=== PATIENT | female | born 1985 | race Caucasian/White ===

== ENCOUNTER → 2017-09-27 12:03 | Outpatient (CLI) | payer OTHER, SELFPAY ==
[2017-09-27 13:58] LABS: Basophils % 0.2 % (0.1-2.0); Eosinophils # 0.1 K/mm3 (0.0-0.4); Eosinophils % 1.9 % (0.1-12.0); Hematocrit 42.7 % (37.0-47.0); Hemoglobin 13.3 g/dL (12.2-16.2); Lymphocytes # 0.8 K/mm3 (0.7-4.5); Lymphocytes % 11.6 K/mm3 (10-50); Mean Corpuscular HGB Conc 31.3 g/dL (31.8-35.4); Mean Corpuscular Hemoglobin 27.4 pg (27.0-31.2); Mean Corpuscular Volume 87.7 fl (81-99); Monocytes # 0.3 K/mm3 (0.1-1.0); Monocytes % 4.3 % (1.7-9.3); Neutrophils # 5.5 K/mm3 (1.8-7.8); Platelet Count 339 K/mm3 (142-424); Red Blood Count 4.87 M/mm3 (4.20-5.40); Red Cell Distribution Width 12.3 % (11.5-17.5); White Blood Count 6.7 K/mm3 (4.8-10.8)
[2017-09-27 15:02] LABS: Alanine Aminotransferase 22 U/L (12-78); Albumin Level 3.8 gm/dL (3.4-5.0); Albumin/Globulin Ratio 1.2 (1.1-1.8); Alkaline Phosphatase 102 U/L (46-116); Anion Gap 15.3 mEq/L (5-15); Aspartate Amino Transferase 16 U/L (15-37); Bilirubin,Total 0.3 mg/dL (0.2-1.0); Blood Urea Nitrogen 9 mg/dL (7-18); Calcium 9.4 mg/dL (8.5-10.1); Carbon Dioxide 26 mmol/L (21.0-32.0); Chloride 103 mmol/L (98-107); Creatinine,Serum 0.56 mg/dL (0.55-1.02); Estimated Glomerular Filt Rate 125 ml/min (>60); GFR (African American) 151 ML/MIN (>60); Globulin 3.1 gm/dl (1.3-3.2); Glucose 81 mg/dL (74-106); Potassium 4.3 mmoL/L (3.5-5.1); Sodium 140 mmol/L (136-145); Thyroid Stimulating Hormone 2.37 uIU/ml (0.358-3.740); Total Protein,Serum 6.9 gm/dL (6.4-8.2)
[2017-09-28 20:26] LABS: Vitamin B12 321 pg/mL (232-1245); Vitamin D 25 Hydroxy 17.5 ng/mL (30.0-100.0)
== END ==
PROVIDERS: Visit Provider Nurse Practitioner Family
DX: R53.83 Other fatigue (principal)
CPT/HCPCS: 36415; 80053; 82607; 82652; 84443; 85025

== ENCOUNTER → 2019-02-18 11:17 | Outpatient (CLI) | payer OTHER, SELFPAY ==
--- NOTE | 2019-02-18 | XR_ITS ---
PROCEDURE: XR CHEST 2V CLINICAL HISTORY: CHEST PAIN COMPARISON: No exams were available for comparison FINDINGS: The cardiomediastinal silhouette and pulmonary vascularity are within normal limits. The lungs are clear without infiltrates, suspicious nodules, or pleural effusions. No acute bony abnormalities. IMPRESSION: No acute findings. Dictated by: Ari Cramer MD 02/19/2019 11:27 Electronically signed by Ari Cramer MD in [place] 02/19/2019 11:27
[2019-02-18 11:39] LABS: Basophils # 0.1 K/mm3 (0-0.2); Basophils % 0.7 % (0.1-2.0); Eosinophils # 0.3 K/mm3 (0.0-0.4); Eosinophils % 3.3 % (0.1-12.0); Hematocrit 40.4 % (37.0-47.0); Hemoglobin 13.4 g/dL (12.2-16.2); Lymphocytes # 2.2 K/mm3 (0.7-4.5); Lymphocytes % 28.3 % (10-50); Mean Corpuscular HGB Conc 33.2 g/dL (31.8-35.4); Mean Corpuscular Hemoglobin 29.5 pg (27.0-31.2); Mean Corpuscular Volume 89.1 fl (81-99); Mean Platelet Volume 7.9 fl (7.4-10.4); Monocytes # 0.4 K/mm3 (0.1-1.0); Monocytes % 5.1 % (1.7-9.3); Neutrophils # 4.9 K/mm3 (1.8-7.8); Neutrophils % 62.7 % (37.0-80.0); Platelet Count 381 K/mm3 (142-424); Red Blood Count 4.54 M/mm3 (4.20-5.40); Red Cell Distribution Width 11.9 % (11.5-17.5); White Blood Count 7.8 K/mm3 (4.8-10.8)
[2019-02-18 11:53] LABS: Troponin I < 0.02 ng/ml (0.00-0.06)
[2019-02-18 11:59] LABS: Anion Gap 9.2 mEq/L (5-15); Blood Urea Nitrogen 10 mg/dL (7-18); Calcium 9.4 mg/dL (8.5-10.1); Carbon Dioxide 29 mmol/L (21.0-32.0); Chloride 104 mmol/L (98-107); Creatinine,Serum 0.82 mg/dL (0.55-1.02); Estimated Glomerular Filt Rate 79 ml/min (>60); GFR (African American) 96 ML/MIN (>60); Glucose 91 mg/dL (74-106); Potassium 4.2 mmoL/L (3.5-5.1); Sodium 138 mmol/L (136-145); T4 (Thyroxine) 8.9 ug/dl (4.7-13.3); Thyroid Stimulating Hormone 3.29 uIU/ml (0.358-3.740); Triiodothryronine (T3) Uptake 34 % (31-39)
== END ==
PROVIDERS: Visit Provider Urology
DX: R07.9 Chest pain, unspecified (principal)
CPT/HCPCS: 36415; 71046; 80048; 84436; 84443; 84479; 84484; 85025

== ENCOUNTER → 2019-05-15 08:00 | Outpatient (CLI) | payer OTHER, SELFPAY ==
[2019-05-15 09:28] LABS: Alanine Aminotransferase 19 U/L (12-78); Albumin Level 4.1 gm/dL (3.4-5.0); Albumin/Globulin Ratio 1.6 (1.1-1.8); Alkaline Phosphatase 64 U/L (46-116); Anion Gap 12.2 mEq/L (5-15); Aspartate Amino Transferase 14 U/L (15-37); Bilirubin,Total 0.3 mg/dL (0.2-1.0); Blood Urea Nitrogen 11 mg/dL (7-18); Calcium 9.6 mg/dL (8.5-10.1); Carbon Dioxide 26 mmol/L (21.0-32.0); Chloride 105 mmol/L (98-107); Chol/HDL Ratio 3.2 (1-3.5); Cholesterol 177 mg/dL (140-200); Creatinine,Serum 0.71 mg/dL (0.55-1.02); Estimated Glomerular Filt Rate 94 ml/min (>60); GFR (African American) 113 ML/MIN (>60); Globulin 2.5 gm/dl (1.3-3.2); Glucose 90 mg/dL (74-106); HDL Cholesterol 56 mg/dL (29-89); LDL Cholesterol 102 mg/dL (0-130); Potassium 4.2 mmoL/L (3.5-5.1); Sodium 139 mmol/L (136-145); Total Protein,Serum 6.6 gm/dL (6.4-8.2); Triglycerides 95 mg/dL (30-200); VLDL Cholesterol 19 mg/dL (0-40)
== END ==
PROVIDERS: Visit Provider Nurse Practitioner Family
DX: E78.5 Hyperlipidemia, unspecified (principal)
CPT/HCPCS: 36415; 80053; 80061

== ENCOUNTER → 2019-11-24 16:23 | Outpatient (CLI) | payer OTHER, SELFPAY | PROVIDERS: PCP Internal Medicine Adolescent Medicine; Visit Provider Internal Medicine Adolescent Medicine | DX: U07.1 COVID-19 (principal) | CPT/HCPCS: U0003 ==

== ENCOUNTER → 2019-12-03 11:56 | Outpatient (CLI) | payer OTHER, SELFPAY ==
[2019-12-05 09:01] LABS: Covid-19 Nasal PCR Sendout Lex Indeterminate
== END ==
PROVIDERS: PCP Internal Medicine Adolescent Medicine; Visit Provider Internal Medicine Adolescent Medicine
DX: Z03.818 Encounter for observation for suspected exposure to other biological agents ruled out (principal)
CPT/HCPCS: U0004

== ENCOUNTER → 2019-12-07 07:19 | Outpatient (CLI) | payer OTHER, SELFPAY ==
[2019-12-07 10:03] LABS: Coronavirus 19 IgG Antibody Positive (Negative); Coronavirus 19 IgM Antibody Positive (Negative)
== END ==
PROVIDERS: PCP Internal Medicine Adolescent Medicine; Visit Provider Internal Medicine Adolescent Medicine
DX: Z20.828 Contact with and (suspected) exposure to other viral communicable diseases (principal); U07.1 COVID-19
CPT/HCPCS: 36415; 86328

== ENCOUNTER → 2019-12-25 16:11 | Outpatient (CLI) | payer OTHER, SELFPAY ==
--- NOTE | 2019-12-25 16:19 | US_ITS ---
PROCEDURE: US BREAST LT COMPLETE CLINICAL INDICATION: BREAST PAIN, LEFT COMPARISON: No exams were available for comparison FINDINGS: Survey ultrasound images of the entire breast show somewhat diffuse heterogenic echogenicity throughout. There is no suspicious cystic or solid mass noted. There are couple normal appearing nodes in the axilla. IMPRESSION: Unremarkable ultrasound left breast Dictated by: Dr. Isauro Miranda MD 12/27/2019 08:48 Dr. Isauro Miranda MD in [place] 12/27/2019 08:48
== END ==
PROVIDERS: PCP Internal Medicine Adolescent Medicine; Visit Provider Internal Medicine Adolescent Medicine
DX: N64.4 Mastodynia (principal)
CPT/HCPCS: 76641

== ENCOUNTER → 2021-08-22 08:26 | Outpatient (CLI) | payer OTHER, SELFPAY ==
--- NOTE | 2021-08-22 08:26 | US_ITS ---
FINAL REPORT CLINICAL HISTORY: RUQ pain FINDINGS: Sonographic images of the right upper quadrant were obtained. The pancreas is partially obscured.The liver has an unremarkable appearance. There is an echogenic nonshadowing focus in the gallbladder which may represent a polyp versus tumefactive sludge. There is no definite gallstone. There is no evidence of biliary ductal dilatation.The common duct measures 3 mm. Limited images of the right kidney are unremarkable. IMPRESSION: Polyp versus tumefactive sludge within the gallbladder. No definite gallstone is identified. Reviewed, Interpreted and Dictated by Ever Davenport III, MD Transcribed by Blanca Vega Authenticated by Ever Davenport III, MD on 08/22/2021 09:49:29 AM [facility]
== END ==
PROVIDERS: PCP Internal Medicine Adolescent Medicine; Visit Provider Surgery
DX: R10.11 Right upper quadrant pain (principal)
CPT/HCPCS: 76705

== ENCOUNTER → 2021-12-19 08:59 | Outpatient (CLI) | payer OTHER, SELFPAY ==
[2021-12-19 10:08] LABS: Urine Pregnancy, HCG Qual. Negative (Negative)
[2021-12-19 10:18] LABS: Basophils % 0.5 % (0.1-2.0); Eosinophils # 0.2 K/mm3 (0.0-0.4); Eosinophils % 3.1 % (0.1-12.0); Hemoglobin 12.6 g/dL (12.2-16.2); Lymphocytes # 1.4 K/mm3 (0.7-4.5); Lymphocytes % 21.9 % (10-50); Mean Corpuscular HGB Conc 30.7 g/dL (31.8-35.4); Mean Corpuscular Volume 91.3 fl (81-99); Mean Platelet Volume 7.9 fl (7.4-10.4); Monocytes # 0.3 K/mm3 (0.1-1.0); Monocytes % 5.1 % (1.7-9.3); Neutrophils # 4.4 K/mm3 (1.8-7.8); Neutrophils % 69.4 % (37.0-80.0); Platelet Count 388 K/mm3 (142-424); Red Blood Count 4.49 M/mm3 (4.20-5.40); Red Cell Distribution Width 12.2 % (11.5-17.5); White Blood Count 6.4 K/mm3 (4.8-10.8)
[2021-12-19 11:04] LABS: Alanine Aminotransferase 17 U/L (12-78); Albumin Level 4.2 g/dl (3.5-5.0); Albumin/Globulin Ratio 1.7 (1.1-1.8); Alkaline Phosphatase 86 U/L (38-126); Anion Gap 10.2 mEq/L (5-15); Aspartate Amino Transferase 24 U/L (14-36); Bilirubin,Total < 0.1 mg/dl (0.2-1.3); Blood Urea Nitrogen 12 mg/dl (7-17); Calcium 9.8 mg/dl (8.4-10.2); Carbon Dioxide 27 mmol/L (22.0-30.0); Chloride 103 mmol/L (98-107); Estimated Glomerular Filt Rate 94 ml/min (>60); GFR (African American) 113 ML/MIN (>60); Globulin 2.5 g/dL (1.3-3.2); Glucose 101 mg/dl (74-100); Potassium 4.2 mmoL/L (3.5-5.1); Sodium 136 mmol/L (136-145); Total Protein,Serum 6.7 g/dl (6.3-8.2)
== END ==
PROVIDERS: PCP Internal Medicine Adolescent Medicine; Visit Provider Surgery
DX: Z01.812 Encounter for preprocedural laboratory examination (principal); R10.11 Right upper quadrant pain
CPT/HCPCS: 36415; 80053; 81025; 85025

== ENCOUNTER → 2021-12-20 11:37 | Outpatient (CLI) | payer OTHER, SELFPAY | PROVIDERS: PCP Internal Medicine Adolescent Medicine; Visit Provider Surgery | DX: Z01.812 Encounter for preprocedural laboratory examination (principal); Z20.822 Contact with and (suspected) exposure to COVID-19 | CPT/HCPCS: C9803; U0003; U0005 ==

== ENCOUNTER 2021-12-21 06:09 | Day surgery (SDC) | payer OTHER, SELFPAY ==
[2021-12-21] VITALS (14 sets, daily range): BP systolic 110–135; BP diastolic 69–94; PULSE 73–104; RESP 10–20; TEMP 36.1–43; O2SAT 96–100; BMI 28.5
--- NOTE | 2021-12-21 06:21 | EXP.GEN.HP ---
HPI HPI HPI: Patient is a 36-year-old female who has had symptoms consistent with biliary colic characterized as sporadic right upper quadrant pain. This has been somewhat progressive and is becoming nearly constant. She underwent gallbladder ultrasound which revealed gallbladder polyp versus tumefactive sludge. PFSH PFSH Medical History (Updated 12/21/21 @ 06:32 by Sydnee Adler RN) Allergies Urinary tract infection Surgical History (Updated 12/21/21 @ 06:31 by Sydnee Adler RN) History of tonsillectomy and adenoidectomy Hx of section Family History (Updated 12/21/21 @ 06:56 by Sydnee Adler RN) Lung cancer Grandfather Hx of heart bypass surgery Social History (Updated 12/21/21 @ 06:36 by Sydnee Adler RN) Smoking Status: Former smoker years smoked: 6 smoking status stop date: 12/13/2006 how long ago did patient quit smokin YEARS AGO second hand exposure: No alcohol intake: current substance use type: denies use current occupational status: employed Travel in the last 8 weeks: None housing: house Review of Systems Review of Systems Review of systems:: pertinent systems reviewed and negative unless documented below Meds Home Medications and Allergies Home Medications Medication Instructions Recorded Confirmed Type loratadine 5 mg-pseudoephedrine ER 1 tab PO DAILY allergies 08/01/21 12/21/21 History 120 mg tablet,extended release,12hr (Alavert D-12 Allergy-Sinus) New Prescriptions to Start Prescriptions: Allergies Allergy/AdvReac Type Severity Reaction Status Date / Time No Known Allergies Allergy Verified 12/21/21 06:27 Exam *Routine HEENT Exam Head: Present normocephalic Eye: Present PERRL ENT: Present mucous membranes moist *Routine Respiratory Exam Respiratory: Present normal respiratory effort *Routine Cardiovascular Exam Cardiovascular: Present RRR *Routine Abdominal Exam Abdominal: Present soft *Routine Rectal Exam Rectal:: deferred *Routine Genitalia Exam Genitalia:: deferred Assessment and Plan *Assessment and plan (1) Gallbladder disease: Status: Acute Category: Medical Code(s): K82.9 - Disease of gallbladder, unspecified Plan Options were discussed. She wished to pursue cholecystectomy. Plan will be for laparoscopic possibly open cholecystectomy.
--- NOTE | 2021-12-21 07:03 | P.PN_ITS ---
PFSH PFSH Medical History Allergies Urinary tract infection Surgical History History of tonsillectomy and adenoidectomy Hx of section Family History Grandfather Lung cancer Other Hx of heart bypass surgery Social History Smoking Status: Former smoker years smoked: 6 smoking status stop date: 12/13/2006 how long ago did patient quit smokin YEARS AGO second hand exposure: No alcohol intake: current substance use type: denies use current occupational status: employed Travel in the last 8 weeks: None housing: house [facility] Anesthesia Checklist Patient Identification Patient Identification: Arm Band and Verbal (Name & ) Structural Data Admitted From: Home Planned Operative Procedure/s: Lap. ros Consent for Planned Operative Procedure(s) Verified: Yes NPO Status Verified Time NPO: 00:00 Chart Verification Results Verified: HCG Additional verifications Anesthesia Reactions: No Hx Blood Transfusions: No Blood Transfusion Reaction: No Airway Assessment C-Spine Mobility Assessed: Yes TMJ Mobility Assessed: Yes Dentition: Good Dentition Neurological Assessment Level of Consciousness: Awake Hx Seizures: No Numbness or tingling in extremities: No Anesthesia Plan Anesthesia Risk discussed: Yes Anesthesia Plan: Verified ASA Class: I Anesthesia Type: General
--- NOTE | 2021-12-21 08:44 | EXP.OP.NOTE ---
Date of procedure: 12/21/21 Pre-op Diagnosis:: Gallbladder disease Post-op Diagnosis:: Gallbladder disease Umbilical hernia Procedure performed:: Laparoscopic cholecystectomy Open umbilical hernia repair Surgeon:: Ever Chavarria MD DIRECTOR OF CLINICAL APPLICATIONS:: Other Anesthesia: BERNARD Estimated blood loss (mL): 25 Clinical Note:: Patient is 36-year-old female. She has had symptoms consistent with biliary colic characterized by right upper quadrant pain. She underwent gallbladder ultrasound which revealed polyps versus tumefactive sludge. Her symptoms have been progressive and becoming more frequent and nearly constant. She wished to pursue cholecystectomy. Operative findings:: Patient had a small umbilical hernia. She had a somewhat distended gallbladder with omental adhesions. Operative note:: Consent was obtained patient was taken to the operating room. She was positioned in supine position. General anesthesia was induced via endotracheal tube. Abdomen was prepped and draped in the standard surgical fashion. She was noted to have a small umbilical hernia. Subumbilical incision was made. Dissection was carried down to the fascial defect incising the peritoneum from the umbilical subdermis. Ultimately the peritoneal cavity was entered as the peritoneum was incised. Blunt Powers trocar was inserted into the peritoneal cavity and secured with 0 Vicryl fascial stay sutures. CO2 pneumoperitoneum was achieved to 15 mmHg. Laparoscope was inserted and intra-abdominal surveillance was carried out. She was positioned in reverse Trendelenburg and left side down. A couple of 5 mm trochars were inserted in the right upper abdomen. 10 mm trocar was inserted in the epigastrium. Gallbladder was identified. There were omental adhesions to the gallbladder. Gallbladder was grasped and retracted anterolaterally. There were omental adhesions to the gallbladder which were taken down using blunt dissection. Blunt dissection was carried out at the neck of the gallbladder bluntly incising the visceral peritoneum. There was a minuscule amount of bile spillage from tiny tear at the neck of the gallbladder. The cystic duct and cystic artery were clearly identified. Cystic duct was multiply clipped and sharply divided. Cystic artery was carefully coagulated with JAY ultrasonic harmonic mark and divided. The gallbladder was dissected free from the liver in a retrograde fashion using JAY ultrasonic harmonic mark. Gallbladder was placed within an Endo Catch retrieval device and removed via the umbilical trocar site. The gallbladder fossa was then inspected for hemostasis which was assured. Irrigation of the gallbladder fossa and perihepatic space was carried out until clear. There was good hemostasis. Trochars were then removed as CO2 pneumoperitoneum was evacuated. Extraneous peritoneum at the umbilical hernia site was excised using electrocautery and sent off as hernia contents. Previously dissected free preperitoneal fatty tissues which were herniated was sent off with the specimen as hernia sac and contents. The defect was then repaired with several interrupted 0 Ethibond sutures. Local anesthetic was infiltrated. Umbilical subdermis was reapproximated to the fascia with a couple of 2-0 Vicryl's. Several 2-0 Vicryl's were placed for closure of the umbilical subdermal tissues. Skin incisions were closed with 4-0 Monocryl in a subcuticular fashion. Steri-Strips and dressings were applied. Condition: stable Disposition: PACU Complications:: None immediately apparent
--- NOTE | 2021-12-21 09:01 | EXP.ANES.I ---
[facility] Anesthesia Record Part I Anesthesia Record I Intake, IV Amount: 900 Estimated blood loss (mL): 5 Urine output (mL): 0 Blood Pressure: 126/85 SaO2: 99 Pulse Rate: 99 Respiratory Rate: 10 Temperature: 97.0 F Patient is:: Drowsy Stable to PACU at:: 08:53
--- NOTE | 2021-12-21 09:13 | ECG_ITS ---
APPROVED REPORT Exam: Resting ECG HR:73 bpm ECG Measurements Heart Rate 73 AXES FL 136 P 72 QRSd 83 QRS 73 QT 375 T -4 QTc 401 Conclusion SINUS RHYTHM NONSPECIFIC T-WAVE ABNORMALITY ABNORMAL ECG UNCONFIRMED REPORT Electronically signed by : Curtis Finley MD 12/21/2021 11:33:07
--- NOTE | 2021-12-21 09:25 | SUR.PHASEI ---
LATE ENTRY 0908 pt complained of epigastric/mid chest pain. pulse rate ranges from 80-115. rates pain at a 3. Aleisha Mack CRNA notified. Aleisha Mack CRNA ordered morphine 2mg and EKG. 09 morphine 2mg administered IV 09 respiratory at bedside performing EKG 925 Aleisha Mack CRNA reviewed EKG and requested that EKG be seen by Dr. Pruitt. 0939 EKG taken to catheter builder for Dr. Pruitt to see.
--- NOTE | 2021-12-21 10:43 | SUR.OPER ---
0853-detailed report to orestes medeiros rn.
--- NOTE | 2021-12-21 11:31 | SUR.PHASEI ---
LATE ENTRY 0942 Dr. Pruitt reviewed EKG. Per Dr. Pruitt, EKG is okay. No problems seen on EKG at this time.
--- NOTE | 2021-12-21 13:13 | PC.NURSE ---
LATE ENTRY 1020 Just prior to discharge, pt became nauseated when moving to change clothes. Pt was then able to belch and was relieved of nausea.
--- NOTE | 2021-12-21 13:34 | SUR.PHASEII ---
LATE ENTRY 1018 umbilical dressing noted to have drainage. tonsil sponge, telfa, and tegaderm removed. replaced with 4x4, new telfa, and new tegaderm.
--- NOTE | 2021-12-21 13:36 | SUR.PHASEI ---
LATE ENTRY 0945 Aleisha Mack CRNA notified that Dr. Pruitt reviewed EKG and was okay with EKG.
== END 2021-12-21 10:20 | disposition home or self-care (01) ==
LOC: SDC 06:11
PROVIDERS: PCP Internal Medicine Adolescent Medicine; Visit Provider Surgery
PROC: 0FT44ZZ Resection of Gallbladder, Percutaneous Endoscopic Approach (ICD-10-PCS; CPT 47562; principal; 2021-12-21 07:30)
DX: K82.9 Disease of gallbladder, unspecified (principal); K42.9 Umbilical hernia without obstruction or gangrene; Z79.899 Other long term (current) drug therapy
CPT/HCPCS: 47562; 49585; 93005; 96374; J0131; J2405

== ENCOUNTER → 2022-09-12 15:06 | Outpatient (CLI) | payer OTHER, SELFPAY ==
[2022-09-12 15:15] LABS: Microscopic, Urine URINE MICROSCOPIC (MICROSCOPIC)
[2022-09-12 18:58] LABS: Appearance,Urine CLEAR (Clear); Bilirubin,Urine Negative (Negative); Blood, Urine 1+ (Negative); Color,Urine YELLOW (Yellow); Glucose,Urine (UA) Negative (Negative); Ketones,Urine Negative (Negative); Leukocyte Esterase,Urine TRACE (Negative); Nitrate,Urine Negative (Negative); Protein,Urine Negative (Negative); Urobilinogen,Urine 0.2 EU/dl (0.2)
[2022-09-12 20:59] LABS: Bacteria,Urine 1+ /lpf; RBC,Urine Occasional #/hpf (0-3)
[2022-09-12 21:00] LABS: Squamous Epithelial Cell,Urine 20-50 #/hpf (0-5)
== END ==
PROVIDERS: PCP Nurse Practitioner Family; Visit Provider Nurse Practitioner Family
DX: R30.0 Dysuria (principal); B96.29 Other Escherichia coli [E. coli] as the cause of diseases classified elsewhere
CPT/HCPCS: 81001; 87086; 87088; 87186

== ENCOUNTER → 2022-10-16 07:53 | Outpatient (CLI) | payer OTHER, SELFPAY ==
[2022-10-16 09:41] LABS: Basophils % 0.1 % (0.1-2.0); Eosinophils % 0.3 % (0.1-12.0); Hematocrit 41.1 % (37.0-47.0); Hemoglobin 12.9 g/dL (12.2-16.2); Lymphocytes % 9.1 % (10-50); Mean Corpuscular HGB Conc 31.4 g/dL (31.8-35.4); Mean Corpuscular Volume 89.2 fl (81-99); Mean Platelet Volume 8.5 fl (7.4-10.4); Monocytes # 0.2 K/mm3 (0.1-1.0); Monocytes % 1.4 % (1.7-9.3); Neutrophils # 9.5 K/mm3 (1.8-7.8); Neutrophils % 89.1 % (37.0-80.0); Platelet Count 731 K/mm3 (142-424); Red Blood Count 4.61 M/mm3 (4.20-5.40); Red Cell Distribution Width 12.4 % (11.5-17.5); White Blood Count 10.7 K/mm3 (4.8-10.8)
[2022-10-16 09:45] LABS: MANUAL DIFFERENTIAL MANUAL DIFFERENTIAL (MANUAL DIFF)
[2022-10-16 09:55] LABS: Chloride 102 mmol/L (98-107)
[2022-10-16 09:56] LABS: Sodium 137 mmol/L (136-145)
[2022-10-16 09:58] LABS: Alanine Aminotransferase 30 U/L (12-78); Alkaline Phosphatase 131 U/L (38-126); Aspartate Amino Transferase 32 U/L (14-36); Bilirubin,Total 0.2 mg/dl (0.2-1.3); Blood Urea Nitrogen 9 mg/dl (7-17); Estimated Glomerular Filt Rate 112 ml/min (>60); GFR (African American) 135 ML/MIN (>60)
[2022-10-16 09:59] LABS: Albumin Level 4.3 g/dl (3.5-5.0); Albumin/Globulin Ratio 1.4 (1.1-1.8); Carbon Dioxide 24 mmol/L (22.0-30.0); Chol/HDL Ratio 3.3 (1-3.5); Cholesterol 264 mg/dl (140-200); Glucose 146 mg/dl (74-100); HDL Cholesterol 81 mg/dl (40-60); Total Protein,Serum 7.3 g/dl (6.3-8.2); Triglycerides 96 mg/dl (30-150); VLDL Cholesterol 19 mg/dL (0-40)
[2022-10-16 10:10] LABS: Direct LDL Cholesterol 135.02 mg/dL (100-129)
[2022-10-16 10:11] LABS: Lymphocytes % 10 % (10-50); Neutrophils % 90 % (42-76); RBC Morphology Normal; Total Cells Counted 100
[2022-10-16 10:12] LABS: Platelet Estimate Moderate Increase
[2022-10-16 10:29] LABS: Thyroid Stimulating Hormone 0.88 uIU/mL (0.465-4.68)
[2022-10-16 15:33] LABS: Hemoglobin A1C 5.6 % (4.0-6.0)
[2022-10-16 16:37] LABS: Vitamin B12 301 pg/mL (239-931)
[2022-10-18 20:34] LABS: 25-OH Vitamin D, Total < 12.8 ng/mL (30-100)
== END ==
PROVIDERS: PCP Nurse Practitioner Family; Visit Provider Nurse Practitioner Family
DX: Z00.00 Encounter for general adult medical examination without abnormal findings (principal); R53.83 Other fatigue; E78.5 Hyperlipidemia, unspecified; E55.9 Vitamin D deficiency, unspecified
CPT/HCPCS: 36415; 80053; 80061; 82306; 82607; 82652; 83036; 84443; 85007; 85025

== ENCOUNTER → 2022-11-21 08:31 | Outpatient (CLI) | payer OTHER, SELFPAY ==
[2022-11-21 08:55] LABS: Basophils % 0.3 % (0.1-2.0); Eosinophils # 0.1 K/mm3 (0.0-0.4); Eosinophils % 1.5 % (0.1-12.0); Hematocrit 37.3 % (37.0-47.0); Hemoglobin 12.1 g/dL (12.2-16.2); Lymphocytes # 1.4 K/mm3 (0.7-4.5); Lymphocytes % 14.7 % (10-50); Mean Corpuscular HGB Conc 32.3 g/dL (31.8-35.4); Mean Corpuscular Hemoglobin 27.7 pg (27.0-31.2); Mean Corpuscular Volume 85.9 fl (81-99); Mean Platelet Volume 7.8 fl (7.4-10.4); Monocytes # 0.5 K/mm3 (0.1-1.0); Monocytes % 4.9 % (1.7-9.3); Neutrophils # 7.4 K/mm3 (1.8-7.8); Neutrophils % 78.5 % (37.0-80.0); Platelet Count 473 K/mm3 (142-424); Red Blood Count 4.35 M/mm3 (4.20-5.40); Red Cell Distribution Width 13.4 % (11.5-17.5); White Blood Count 9.4 K/mm3 (4.8-10.8)
[2022-11-21 10:14] LABS: C-Reactive Protein 27.9 mg/L (0-4)
== END ==
PROVIDERS: PCP Nurse Practitioner Family; Visit Provider Nurse Practitioner Family
DX: R51.9 Headache, unspecified (principal); D75.839 Thrombocytosis, unspecified
CPT/HCPCS: 36415; 85025; 85651; 86140

== ENCOUNTER → 2022-11-22 15:55 | Outpatient (CLI) | payer OTHER, SELFPAY ==
[2022-11-22 16:46] LABS: Creatine Kinase 53 U/L (30-135)
[2022-11-22 16:58] LABS: Erythrocyte Sedimentation Rate 42 mm/hr (0-20)
[2022-11-26 13:49] LABS: Anti-Centromere B Antibodies <0.2 AI (0.0-0.9); Anti-DNA (DS) Ab Qn <1 IU/mL (0-9); Anti-Jo-1 <0.2 AI (0.0-0.9); Anti-Smith Antibody <0.2 AI (0.0-0.9); Antichromatin Antibodies <0.2 AI (0.0-0.9); Antiscleroderma-70 Antibodies <0.2 AI (0.0-0.9); RNP Antibodies <0.2 AI (0.0-0.9); Sjogren's Anti-SS-A <0.2 AI (0.0-0.9); Sjogren's Anti-SS-B <0.2 AI (0.0-0.9)
== END ==
LOC: LAB 15:55
PROVIDERS: PCP Nurse Practitioner Family; Visit Provider Nurse Practitioner Family
DX: R79.82 Elevated C-reactive protein (CRP) (principal); M79.10 Myalgia, unspecified site
CPT/HCPCS: 36415; 82550; 85651; 86225; 86235

== ENCOUNTER → 2022-12-11 12:43 | Outpatient (CLI) | payer OTHER, SELFPAY ==
--- NOTE | 2022-12-11 12:52 | MR_ITS ---
FINAL REPORT CLINICAL HISTORY: PRESISITANT HEADACHES 12 ml prohance given headaches since august 2022 , pt gets body aches and chills when she gets headaches COMPARISON: None FINDINGS: Multiplanar MR imaging of the brain was performed without and with contrast. There is no evidence of intracranial hemorrhage or mass. No abnormal extra-axial fluid collection is seen. The ventricular size is within normal limits. There is no evidence of shift of the midline structures. The posterior fossa and brainstem have an unremarkable appearance. No localized intra-axial signal abnormality. No area of abnormal restricted diffusion is identified. No abnormal contrast enhancement is seen. Normal major vessel vascular flow voids are noted. Visualized paranasal sinuses demonstrate normal signal voids. IMPRESSION: No acute intracranial abnormality identified. Reviewed, Interpreted and Dictated by Cameron Briceno MD Transcribed by Anel Shabazz Authenticated and [facility]
== END ==
LOC: RAD 12:43
PROVIDERS: PCP Nurse Practitioner Family; Visit Provider Nurse Practitioner Family
DX: R51.9 Headache, unspecified (principal)
CPT/HCPCS: 70553; A9576

== ENCOUNTER → 2023-04-02 15:53 | Outpatient (CLI) | payer OTHER, SELFPAY ==
[2023-04-02 16:21] LABS: Basophils % 0.4 % (0.1-2.0); Eosinophils # 0.3 K/mm3 (0.0-0.4); Hemoglobin 12.8 g/dL (12.2-16.2); Lymphocytes # 2.4 K/mm3 (0.7-4.5); Mean Corpuscular HGB Conc 34.7 g/dL (31.8-35.4); Mean Corpuscular Hemoglobin 29.8 pg (27.0-31.2); Mean Corpuscular Volume 85.9 fl (81-99); Mean Platelet Volume 8.3 fl (7.4-10.4); Monocytes # 0.4 K/mm3 (0.1-1.0); Monocytes % 3.5 % (1.7-9.3); Neutrophils # 7.3 K/mm3 (1.8-7.8); Neutrophils % 70.2 % (37.0-80.0); Platelet Count 420 K/mm3 (142-424); Red Blood Count 4.31 M/mm3 (4.20-5.40); White Blood Count 10.5 K/mm3 (4.8-10.8)
[2023-04-02 16:56] LABS: Alanine Aminotransferase 17 U/L (12-78); Albumin Level 4.4 g/dl (3.5-5.0); Alkaline Phosphatase 84 U/L (38-126); Anion Gap 9.9 mEq/L (5-15); Aspartate Amino Transferase 25 U/L (14-36); Bilirubin,Direct 0.2 mg/dl (0.0-0.4); Bilirubin,Indirect 0.1 mg/dL (0.0-0.9); Bilirubin,Total 0.3 mg/dl (0.2-1.3); Bilirubin,Unconjugated 0.1 mg/dL (0.0-1.1); Blood Urea Nitrogen 11 mg/dl (7-17); Calcium 9.2 mg/dl (8.4-10.2); Carbon Dioxide 26 mmol/L (22.0-30.0); Chloride 103 mmol/L (98-107); Chol/HDL Ratio 3.5 (1-3.5); Cholesterol 232 mg/dl (140-200); Estimated Glomerular Filt Rate 80 ml/min (>60); GFR (African American) 97 ML/MIN (>60); Glucose 117 mg/dl (74-100); HDL Cholesterol 67 mg/dl (40-60); Potassium 3.9 mmoL/L (3.5-5.1); Sodium 135 mmol/L (136-145); Triglycerides 194 mg/dl (30-150); Troponin I < 0.01 ng/ml (0.00-0.034); VLDL Cholesterol 39 mg/dL (0-40)
[2023-04-02 17:06] LABS: Direct LDL Cholesterol 130.68 mg/dL (100-129)
[2023-04-02 17:11] LABS: Free T4 (Free Thyroxine) 0.86 ng/dl (0.78-2.19)
== END ==
LOC: LAB 15:54
PROVIDERS: PCP Nurse Practitioner Family; Visit Provider Internal Medicine
DX: R00.2 Palpitations (principal); R03.0 Elevated blood-pressure reading, without diagnosis of hypertension; R07.89 Other chest pain; R94.31 Abnormal electrocardiogram [ECG] [EKG]
CPT/HCPCS: 36415; 80048; 80061; 80076; 83735; 84439; 84443; 84484; 85025

== ENCOUNTER → 2023-04-03 13:36 | Outpatient (CLI) | payer OTHER, SELFPAY ==
--- NOTE | 2023-04-03 13:37 | CA_ITS ---
APPROVED REPORT EXAM: Comprehensive 2D, Doppler, and color-flow Echocardiogram Prize Fighter: Oralia Corona CRT Ht: 4 ft 11 in Wt: 138lbs BSA: 1.58 BP: 160/97 mmHg Indications: Abnormal ECG, Palpitations 2D Dimensions Left Atrium 3.35 cm LVEF (Gandhi's) 55.20 % LVOT 1.59 cm (M/F) 1.5-2.5 LV Volume 74.60 mL LA Volume 31.70 mL LA Volume Index 20.20 mL/m2 (M/F) 16-34 EF AP4 53.90 % EF AP2 57.8 % EF BP 55.2 % GL Strain -20.6 % M-Mode Dimensions RVDd 2.57 cm (0.9-2.6) LVDd 3.96 cm (3.5-5.7) Ao Diam 2.63 cm (2.0-3.7) LVDs 2.52 cm (3.5-5.7) IVSd 1.22 cm (0.6-1.1) PWd 0.55 cm (0.6-1.1) EF (Teich) 66.60% FS 36.40% EDV (Teich) 68.30 mL TAPSE 2.15 (<1.7) ESV (Teich) 22.80 mL LV Diastology E Decel Time 156 (160-240 msec) E/A Ratio 1.36 MED E' 13.3 (>= 7 cm/sec) MED A' 14.30 cm/s E'/MED E' Ratio 6.07 (<= 14) LAT E' 16.1 (>= 10 cm/sec) LAT A' 10.20 cm/s E/LAT E' Ratio 5.01 (<= 14) Aortic Valve AoV Peak Armaan. 148.0 (50-130 cm/s) AO Peak GR. 8.80 mmHg Mitral Valve MV E Max Armaan. 81.0 (40-130 cm/s) MV A Velocity 59.0 (40-130 cm/s) E/A Ratio 1.36 MV Decel. Time 156 (160-240 ms) Tricuspid Valve TR P. Velocity 281.00 cm/s RAP Estimate 10.00 mmHg RVSP 41.60 mmHg Left Ventricle The left ventricle is normal size. The left ventricular systolic function is normal. The left ventricular ejection fraction is within the normal range. There is normal left ventricular wall thickness. There is normal LV segmental wall motion. The left ventricular diastolic function is normal. LVEF is 60%. Right Ventricle The right ventricle is normal size. The right ventricular systolic function is normal. Atria The left atrium size is normal. The right atrium size is normal. There is no Doppler evidence of interatrial shunt. Aortic Valve The aortic valve opens well. There is no aortic valvular stenosis. No aortic regurgitation. Mitral Valve The mitral valve is normal in structure. No evidence of mitral valve stenosis. Trace mitral regurgitation. Tricuspid Valve The tricuspid valve leaflets are thin and pliable. Mild tricuspid regurgitation. RVSP is 30-35 mmHg. Pulmonic Valve The pulmonary valve is normal in structure. Trace pulmonic regurgitation. Great Vessels The aortic root is normal in size. The ascending aorta is normal in size. IVC is normal in size and collapses >50% with inspiration. Pericardium There is no pericardial effusion. Other Information Study Quality: Adequate Conclusion Normal biventricular systolic function. Mild TR. RVSP 30-35 mmHg. Electronically signed by : Omayra Pineda MD 04/10/2023 23:23:06
== END ==
LOC: RT 13:37
PROVIDERS: PCP Nurse Practitioner Family; Visit Provider Internal Medicine
DX: R07.89 Other chest pain (principal); R00.2 Palpitations; R03.0 Elevated blood-pressure reading, without diagnosis of hypertension; R94.31 Abnormal electrocardiogram [ECG] [EKG]
CPT/HCPCS: 93270; 93306

== ENCOUNTER 2023-04-17 07:08 | Outpatient (CLI) | payer OTHER, SELFPAY ==
[2023-04-17] VITALS (10 sets, daily range): BP systolic 114–159; BP diastolic 77–104; PULSE 60–80; RESP 16–18; TEMP 36.2–36.4; O2SAT 98–100; BMI 28.3
--- NOTE | 2023-04-17 07:08 | CT_ITS ---
APPROVED REPORT Radio Division Lieutenant: CLINICAL INDICATION Chest Pain TECHNIQUE Image Acquisition: A 128 slice MDCT scanner (Inspiroteca View) was used for data acquisition. A noncontrast coronary calcium scan was performed. A CT attenuation threshold of 130 Hounsfield units (HU) was used for the detection of calcium in contiguous voxels of 1 sq mm in area to be counted as individual lesions. Bolus tracking in the ascending aorta with a threshold of 180 HU was performed. Immediately afterwards, ECG synchronized cardiac CT was then performed from the cardiac base to apex using retrospective gating with ECG tube current modulation. A total of 85 mL of Isovue 370 mg/mL contrast medium was administered at 5 mL/sec followed by a saline flush using a biphasic injection protocol. A tube voltage of 120 KVp was used. The patient received the following medications prior to the cardiac CT. 100 mg of oral metoprolol 10 mg of intravenous metoprolol 0.8 mg of sublingual nitroglycerin The average heart rate at the time of acquisition was 57 bpm and regular. Image Reconstruction Transaxial images were reconstructed at 0.67 mm slide thickness. Data was reviewed interactively on an advanced workstation capable of 2 and 3-dimensional displays in all conventional reconstruction formats, including multiplanar reformations, maximum intensity projections, curved multiplanar reformations, and volume rendered reconstructions. When applicable, selected routine images describing the relevant coronary anatomy and pathology were saved and sent to PACS. Complications None Technical Quality Overall image quality was good. Coronary artery opacification was adequate. Total DLP (Dose-Length Product) is 971.5 mGy-cm. The reported value represents the total of one or more individual components during the CT acquisition of this date and at this time, and as such, the same value may appear in more than one CT report depending on the interpreting/reporting physicians. COMPARISON None FINDINGS CT Coronary Calcium Scoring LMA (Left Main Artery) = 0 LAD (Left Anterior Descending) = 0 LCX (Left Coronary Circumflex) = 0 RCA (Right Coronary Artery) = 0 Total Calcium Score = 0 using the AJ-130 method. The interpretation of the calcium heart score is based on the following continuum*: 0 = no calcified plaque detected (risk of coronary artery disease is very low ??? less than 5%) 1-10 = calcium detected in extremely minimal levels (risk of coronary diseases is still low ??? less than 10%) 11-100 = mild levels of plaque detected with certainty (mild or minimal narrowing of heart arteries is likely) 101-400 = definite,at least moderate levels of plaque detected (relatively high risk of a heart attack within 3-5 years) >401-999 = extensive levels of plaque detected (high risk of heart attack, high levels of vascular disease are present, high likelihood of at least one significant coronary narrowing) *The calcium heart score quantifies the burden of coronary calcification/plaque in the coronary arteries. The calcium heart score is not able to evaluate the presence or burden of non-calcified (i.e. soft) plaque. There is no identifiable calcification in the aortic valve, mitral annulus or mitral valve, pericardium, or myocardium. Coronary CT Angiography The coronary arterial system is right dominant. Quantitative Stenosis Grading: Left Main (LM): The left main originates normally from the left sinus of Valsalva. The LM bifurcates into the left anterior descending artery and left circumflex artery. The LM is patent with no evidence of atherosclerosis. Left Anterior Descending (LAD) and Diagonal Branches: The LAD gives off 3 diagonal branches. The LAD and its branches are patent with no evidence of atherosclerosis. There is no evidence of LAD bridge. Left Circumflex (LCX) and Obtuse Marginals (OM): The LCX gives off 1 Obtuse Marginal (OM) branch. The LCX and its branches are patent with no evidence of atherosclerosis. Right Coronary Artery (RCA): The RCA originates normally from the right sinus of Valsalva. The RCA gives off a posterior descending artery (PDA) and posterolateral (PL) branches. The RCA and its branches are patent with no evidence of atherosclerosis. Non-Coronary Cardiac Findings: Analysis of the left ventricular (LV) structure and function was performed after 3-D reconstruction of the LV from axial images, with user-corrected automatic contouring for assessment of LV volumes and user-defined reconstruction from oblique planes for measurement of 3-D cardiac structure and function. LVEDV: 121 mL LVESV: 53 mL SV: 68 mL LVEF: 55.9 % -The left ventricle is normal in size with normal left ventricular systolic function. -There is no left atrial appendage filling defect. Two right pulmonary veins and two left pulmonary veins drain normally into the left atrium. -No pericardial thickening or calcification. -Central and branch pulmonary arteries in the [id number] are unremarkable. -Thoracic aorta within the visualized thoracic aortic-branches in the [id number] is unremarkable. Extracardiac Structures -Hiatal hernia is present. IMPRESSION -No coronary calcification with an Agatston score = 0 using the AJ-130 method. -No evidence of significant flow-limiting atherosclerosis of the coronary arteries. -CAD-RADS 0. Management recommendations per ACC/AHA guidelines*, as clinically appropriate. -No significant non-coronary cardiac findings in the visualized segments of the chest. -Hiatal hernia is present. *Recommendations: CAD RADS 0: Reassurance. Consider non-atherosclerotic causes of chest pain. CAD RADS 1: Consider non-atherosclerotic causes of chest pain. Consider preventive therapy and risk factor modification. CAD RADS 2: Consider non-atherosclerotic causes of chest pain. Consider preventive therapy and risk factor modification, particularly for patients with nonobstructive plaque in multiple segments. CAD RADS 3: Consider further functional testing. Consider symptom-guided anti-ischemic and preventive pharmacotherapy as well as risk factor modification per published guideline statements. CAD RADS 4A: Consider further functional testing or invasive coronary angiography with revascularization per published guideline statements. Consider symptom-guided anti-ischemic and preventive pharmacotherapy as well as risk factor modification per published guideline statements. CAD RADS 4B: Invasive coronary angiography recommended with revascularization per published guideline statements. Consider symptom-guided anti-ischemic and preventive pharmacotherapy as well as risk factor modification per published guideline statements. CAD RADS 5: Consider invasive angiography and/or viability assessment with revascularization per published guideline statements. Consider symptom-guided anti-ischemic and preventive pharmacotherapy as well as risk factor modification per published guideline statements. CRITICAL RESULT None COMMUNICATION Per this written report The coronary and cardiac findings of this CCTA were reviewed, reported, and signed by Moshe Pineda MD (Structural Test Engineer) Conclusion Electronically signed by : Omayra Pineda MD 04/17/2023 14:40:58
[2023-04-17 07:30] LABS: Urine Pregnancy, HCG Qual. Negative (Negative)
[2023-04-17] MEDS: METOPROLOL TARTRATE 50MG TABLET 100 MG (07:33)
[2023-04-17] MEDS: METOPROLOL TARTRATE 5MG/5ML VIAL 10 MG IV (08:30)
[2023-04-17] MEDS: METOPROLOL TARTRATE 5MG/5ML VIAL 5 MG IV (08:45)
--- NOTE | 2023-04-17 08:57 | PC.NURSE ---
Pt arrived to post op for recovery from CTA. VSS, no C/O. Up in recliner at this time drinking water, Report from Fawn Martinez RN.
[2023-04-17] MEDS: NITROGLYCERIN 0.4MG SL TABLET 0.400000000000000022 MG SL (09:01)
[2023-04-17] MEDS: 0.9 % SODIUM CHLORIDE 50 ML VIAL IV (09:18)
[2023-04-17] MEDS: IOPAMIDOL-370 (76%);100ML BOTTLE 85 ML IV (09:19)
== END 2023-04-17 09:40 | disposition home or self-care (01) ==
PROVIDERS: PCP Nurse Practitioner Family; Visit Provider Internal Medicine
DX: R07.89 Other chest pain (principal); R94.31 Abnormal electrocardiogram [ECG] [EKG]; R00.2 Palpitations; R03.0 Elevated blood-pressure reading, without diagnosis of hypertension
CPT/HCPCS: 75571; 75574; 81025; Q9967

== ENCOUNTER 2024-04-24 07:55 | Outpatient (CLI) | payer OTHER, SELFPAY ==
--- NOTE | 2024-04-24 07:55 | MM_ITS ---
PROCEDURE INFORMATION: Exam: Bilateral Screening 3D Mammography Exam date and time: 04/24/2024 7:49 AM Age: 38 years old Clinical indication: Baseline. No family history of breast cancer. TECHNIQUE: Imaging protocol: Bilateral Screening tomosynthesis and 2D mammography including computer-aided detection (CAD) when performed. COMPARISON: US BREAST LT COMPLETE 12/25/2019 4:25 PM FINDINGS: MAMMOGRAPHY: Breast composition: The breasts are heterogeneously dense, which may obscure small masses. Mass: None. Architectural distortion: None. Calcifications: No suspicious calcifications. Asymmetric density: None. Skin thickening: None. Axillary adenopathy: None. IMPRESSION: No mammographic evidence of malignancy. Annual screening is recommended unless otherwise clinically indicated. ASSESSMENT: BI-RADS Category 1: Negative.
== END 2024-04-24 23:59 | disposition home or self-care (01) ==
LOC: RAD 07:55
PROVIDERS: PCP Internal Medicine Adolescent Medicine; Visit Provider Nurse Practitioner Obstetrics & Gynecology
DX: Z12.31 Encounter for screening mammogram for malignant neoplasm of breast (principal)
CPT/HCPCS: 77063; 77067

== ENCOUNTER 2024-07-02 13:31 | Outpatient (CLI) | payer OTHER, SELFPAY ==
--- NOTE | 2024-07-02 13:35 | CT_ITS ---
FINAL REPORT TECHNIQUE: Axial images through the abdomen and pelvis were performed without contrast. This study was performed with techniques to keep radiation doses as low as reasonably achievable, (ALARA). Individualized dose reduction techniques using automated exposure control or adjustment of mA and/or kV according to the patient's size were employed. CLINICAL HISTORY: STONE PROTOCOL, rt sided pain for 2 days COMPARISON: None FINDINGS: ABDOMEN: The lung bases are clear. The heart size is normal. Limited images of the liver are unremarkable. The gallbladder is absent. The spleen is normal. No adrenal mass is identified. The aorta is normal in caliber. There is no significant free fluid or adenopathy. There is no nephrolithiasis. There is no hydronephrosis. PELVIS: The appendix is not identified. The urinary bladder is unremarkable. There is no significant free fluid or adenopathy. IMPRESSION: No hydronephrosis or nephrolithiasis. Reviewed, Interpreted and Dictated by Cameron Briceno MD Transcribed by Deann La Authenticated and [facility]
== END 2024-07-02 23:59 | disposition home or self-care (01) ==
LOC: RAD 13:32
PROVIDERS: PCP Nurse Practitioner Family; Visit Provider Nurse Practitioner Family
DX: R31.29 Other microscopic hematuria (principal); R10.9 Unspecified abdominal pain
CPT/HCPCS: 74176